=== PATIENT | male | born 1965 | race Caucasian/White ===

== ENCOUNTER → 2019-03-15 | Outpatient (CLI) | payer BC | LOC: COL.RAD 12:49 | DX: M24.852 Other specific joint derangements of left hip, not elsewhere classified (principal); M16.12 Unilateral primary osteoarthritis, left hip; M17.12 Unilateral primary osteoarthritis, left knee | CPT/HCPCS: A9585; Q9967 ==

== ENCOUNTER → 2022-03-14 | Outpatient (CLI) | payer BC | LOC: COL.RAD 08:25 | DX: M25.551 Pain in right hip (principal) | CPT/HCPCS: A9585; Q9967 ==